=== PATIENT | male | born 1985 | race Caucasian/White ===

== ENCOUNTER 2017-03-06 21:24 | Emergency (ER) | payer SELFPAY ==
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
== END 2017-03-06 23:14 | disposition home or self-care (01) ==
LOC: ER 21:24
DX: S63.502A Unspecified sprain of left wrist, initial encounter (principal); X50.0XXA Overexertion from strenuous movement or load, initial encounter
CPT/HCPCS: 99283

== ENCOUNTER 2017-12-31 23:19 | Emergency (ER) | payer SELFPAY ==
[2017-12-31] MEDS ORDERED: KETOROLAC 30 MG/ML VIAL IM ONE (23:36)
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
[2018-01-01] MEDS ORDERED: DIPHENHYDRAMINE HCL IV 50 MG/ML VIAL IVP ONE (00:07)
[2018-01-01] MEDS ORDERED: METOCLOPRAMIDE HCL 10 MG/2 ML VIAL IVP ONE (00:07)
[2018-01-01] MEDS: ACETAMINOPHEN 325 MG TAB PO ONE ×2 (00:13→00:22)
[2018-01-01] MEDS ORDERED: NEOMYCIN/POLYMYXIN B SULF/HC 10ML BTL OT ONE (01:01)
[2018-01-01] MEDS ORDERED: AMOXICILLIN 500MG CAPSULE PO ONE (01:02)
== END 2018-01-01 01:34 | disposition home or self-care (01) ==
LOC: ER 23:19
DX: H66.91 Otitis media, unspecified, right ear (principal); R51 Headache; F17.210 Nicotine dependence, cigarettes, uncomplicated
CPT/HCPCS: 99284 ×2; 96374; 96372; 96375; J1885; J1200; J2765